=== PATIENT | female | born 1960 | race Caucasian/White ===

== ENCOUNTER 2023-05-27 09:27 | Day surgery (SDC) | payer OTHER ==
[~2023-05-27] VITALS: Ht 160 cm; Wt 68.0 kg
[~2023-05-27 09:27] MED LIST: METF-346 PO
[2023-05-27] MEDS ORDERED: MIDAZOLAM 2 MG/2 ML VIAL ONE ×2 (10:58→10:59)
[2023-05-27] MEDS ORDERED: diphenhydrAMINE 50 MG/ML VIAL ONE (10:58)
[2023-05-27] MEDS ORDERED: fentaNYL citrate 0.05 MG/ML VIAL ONE (10:59)
[2023-05-27] MEDS ORDERED: fentaNYL citrate 0.05 MG/ML VIAL IVP ONE (12:00)
[2023-05-27] MEDS ORDERED: MIDAZOLAM 2 MG/2 ML VIAL IVP ONE (12:00)
== END 2023-05-27 12:15 | disposition home or self-care (01) ==
LOC: MDS 09:27 → MMU 09:30 → MDS 12:15
PROVIDERS: ATTEND Internal Medicine Gastroenterology
DX: K21.9 Gastro-esophageal reflux disease without esophagitis (principal); R47.02 Dysphasia; K31.89 Other diseases of stomach and duodenum; I10 Essential (primary) hypertension; E78.00 Pure hypercholesterolemia, unspecified; E11.9 Type 2 diabetes mellitus without complications; K44.9 Diaphragmatic hernia without obstruction or gangrene
CPT/HCPCS: 43239; 82948; J2250; J3010; J1200